=== PATIENT | female | born 2000 | race Caucasian/White ===

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

== ENCOUNTER 2018-11-05 16:59 | Outpatient (CLI) | payer OTHER, SELFPAY ==
[~2018-11-05] VITALS: Ht 167.6 cm; Wt 60.7 kg
[~2018-11-05 16:59] MED LIST changes: +IBUP-1114 PO; +MAPA500T2 PO
[2018-11-05 17:35] VITALS: BP 136/75
== END 2018-11-05 18:50 | disposition home or self-care (01) ==
LOC: M LDO 16:59
PROVIDERS: ATTEND Advanced Practice Midwife
DX: O26.892 Other specified pregnancy related conditions, second trimester (principal); O09.32 Supervision of pregnancy with insufficient antenatal care, second trimester; Z3A.25 25 weeks gestation of pregnancy
CPT/HCPCS: 59025; G0378; G0463

== ENCOUNTER → 2018-12-15 | Outpatient (CLI) | payer MEDICAID ==
--- NOTE | 2018-12-15 16:35 | REP ---
Obstetric ultrasound for anatomy: There is a single intrauterine gestation in a vertex presentation. There is movement and cardiac activity. The heart rate is 136 beats per minute. The placenta is posterior. There is no previa or abruptio. The placenta is grade 1 maturity. The amniotic fluid volume subjectively is normal. The cervix measures through 0.8 cm length. Gestational age by today's ultrasound is 30 weeks 1 day/NIEVES 02/22/2019. Gestational age by LMP is 30 weeks 5 days/NIEVES 02/18/2019. The amniotic fluid index is 11.9. This is a point -2002 0.7). Umbilical artery mid cord Doppler assessment: S/D ratio 2.63 (2.30-3.30) Resistive Index 0.62 (0.59-0.75 Diastolic Velocity 16.0 (>10 cm/sec) The following anatomic structures are identified and are unremarkable: Intracranial lateral ventricles, choroid plexus, face, upper lip, facial profile, lungs, four-chamber heart, cardiac right and left ventricular outflow tracts, diaphragm, stomach, cord insertion, three-vessel cord, kidneys, bladder, spine and upper lower extremities. The cerebellum and cannot be optimally imaged because of advanced gestational age. Otherwise, there are no anomalies. Electronically Signed by Brenden Fofana MD 12/15/2018 04:26 P
== END ==
LOC: M RAD 14:15
PROVIDERS: ATTEND Advanced Practice Midwife
DX: Z36.89 Encounter for other specified antenatal screening (principal); Z3A.30 30 weeks gestation of pregnancy

== ENCOUNTER → 2019-01-23 | Outpatient (REF) | payer OTHER | LOC: M LAB REF 13:13 | PROVIDERS: ATTEND Advanced Practice Midwife | DX: O99.613 Diseases of the digestive system complicating pregnancy, third trimester (principal); Z3A.00 Weeks of gestation of pregnancy not specified ==

== ENCOUNTER → 2019-05-06 | Outpatient (REF) | payer OTHER ==
[2019-05-06 20:26] LABS: CHLAMYDIA DNA AMPLIFICATION NEGATIVE (NEGATIVE); GC DNA AMPLIFICATION NEGATIVE (NEGATIVE)
== END ==
LOC: M LAB REF 16:52
PROVIDERS: ATTEND Physician Assistant
DX: B37.3 Candidiasis of vulva and vagina (principal)

== ENCOUNTER → 2019-07-16 | Outpatient (REF) | payer OTHER | LOC: M LAB REF 14:14 | PROVIDERS: ATTEND Physician Assistant | DX: N91.2 Amenorrhea, unspecified (principal) ==

== ENCOUNTER → 2022-10-01 | Outpatient (CLI) | payer OTHER ==
[2022-10-01 15:01] LABS: HEMATOCRIT 35.3 % (36.0-47.0); HEMOGLOBIN 11.2 g/dl (12.0-15.5); MEAN CORPUSCULAR HEMOGLOBIN 27.1 pg (27.0-33.0); MEAN CORPUSCULAR HGB CONC 31.7 g/dl (32.0-36.5); MEAN CORPUSCULAR VOLUME 85.5 fl (80.0-96.0); PLATELET COUNT, AUTOMATED 229 10^3/uL (150-450); RED BLOOD COUNT 4.13 10^6/uL (4.00-5.40); WHITE BLOOD COUNT 8.7 10^3/uL (4.0-10.0)
[2022-10-01 16:37] LABS: GC DNA AMPLIFICATION NEGATIVE (NEGATIVE)
[2022-10-01 17:19] LABS: HIV 1&2 SCREEN CENTAUR NEGATIVE (NEGATIVE)
[2022-10-01 17:27] LABS: HEPATITIS C VIRUS ABY INDEX 0.1 INDEX (<0.8)
== END ==
LOC: M PLALAB 10:52
PROVIDERS: ATTEND Advanced Practice Midwife
DX: Z34.93 Encounter for supervision of normal pregnancy, unspecified, third trimester (principal)

== ENCOUNTER → 2022-10-01 | Outpatient (CLI) | payer OTHER | LOC: M PLALAB 10:50 | PROVIDERS: ATTEND Specialist | DX: Z34.83 Encounter for supervision of other normal pregnancy, third trimester (principal) ==

== ENCOUNTER 2022-10-07 12:55 | Outpatient (CLI) | payer OTHER ==
[~2022-10-07] VITALS: Ht 165.1 cm; Wt 71.3 kg
[~2022-10-07 12:55] MED LIST changes: +PRENMIS3 PO
[2022-10-07] MEDS ORDERED: BETAMETHASONE SOLUSPAN 6MG/ML 5ML VIAL IM ONE (13:05)
[2022-10-07 13:14] VITALS: BP 132/71
[2022-10-07] MEDS ORDERED: HOME MED LIST COMPLETE! XX SCH (13:15)
== END 2022-10-07 13:30 | disposition home or self-care (01) ==
LOC: M LDO 12:55
PROVIDERS: ATTEND Obstetrics & Gynecology
DX: O47.03 False labor before 37 completed weeks of gestation, third trimester (principal); Z3A.36 36 weeks gestation of pregnancy; Z20.822 Contact with and (suspected) exposure to COVID-19
CPT/HCPCS: 96372; J0702

== ENCOUNTER 2022-10-18 12:31 | Inpatient (IN) | payer OTHER ==
[2022-10-18] VITALS (16 sets, daily range): BP systolic 116–143; BP diastolic 59–112
[~2022-10-18] VITALS: Ht 165.1 cm; Wt 71.4 kg
[2022-10-18] MEDS: PRENATAL VITAMINS CHEWABLE TABLET PO SCH (09:00)
[2022-10-18] MEDS ORDERED: LACTATED RINGER'S 1000 ML IV STA (13:05)
[2022-10-18] MEDS ORDERED: TRANEXAMIC ACID INJection 1,000 MG in NS 100 ML IV PRN (13:05)
[2022-10-18] MEDS ORDERED: OXYTOCIN DRIP 30 UNITS in IV 1 EA IV PRN (13:05)
[2022-10-18] MEDS ORDERED: LIDOCAINE 1% MDV 20ML VIAL INFIL PRN (13:05)
[2022-10-18] MEDS ORDERED: CARBOPROST TROMETHAMINE 250 MCG/ML AMP IM PRN (13:05)
[2022-10-18] MEDS ORDERED: HOME MED LIST COMPLETE! XX SCH (13:15)
[2022-10-18 13:26] LABS: HEMATOCRIT 35.9 % (36.0-47.0); HEMOGLOBIN 11.6 g/dl (12.0-15.5); MEAN CORPUSCULAR HEMOGLOBIN 26.7 pg (27.0-33.0); MEAN CORPUSCULAR HGB CONC 32.3 g/dl (32.0-36.5); MEAN CORPUSCULAR VOLUME 82.7 fl (80.0-96.0); PLATELET COUNT, AUTOMATED 234 10^3/uL (150-450); RED BLOOD COUNT 4.34 10^6/uL (4.00-5.40); WHITE BLOOD COUNT 16.9 10^3/uL (4.0-10.0)
[2022-10-18] MEDS ORDERED: ePHEDrine SULFATE 25 MG/5 ML(5MG/ML) SYRINGE IVP PRN (13:40)
[2022-10-18] MEDS ORDERED: LR 500 ML IV PRN (13:40)
[2022-10-18] MEDS ORDERED: ONDANSETRON 4MG 2ML VIAL IV PRN (13:40)
[2022-10-18] MEDS ORDERED: diphenhydrAMINE 50MG/ML VIAL IV PRN (13:40)
[2022-10-18] MEDS ORDERED: NALOXONE INJ 0.4MG/1ML VIAL IV PRN (13:40)
[2022-10-18] MEDS ORDERED: EPIDURAL/PCA KEYS XX PRN (13:40)
[2022-10-18] MEDS: LR 1,000 ML IV SCH ×4 (13:43→22:55)
[2022-10-18] MEDS ORDERED: FENTANYL 2MCG/ML ROPIVACAINE 0.2% IN 0.9% NACL 100ML IVBAG As Ordered ONE (14:04)
[2022-10-18] MEDS: FENTANYL/ROPIVACAINE/NACL BAG 100 ML EPIDURAL SCH ×2 (14:53→23:40)
[2022-10-18] MEDS ORDERED: RHOGAM 300MCG (1500IU) INJ IM SCH (14:55)
[2022-10-18] MEDS ORDERED: OXYTOCIN DRIP 30 UNITS in IV 1 EA IV SCH (14:55)
[2022-10-18] MEDS ORDERED: IBUPROFEN 600MG TAB PO PRN (14:55)
[2022-10-18] MEDS ORDERED: ANUSOL HC CREAM 30GM TOP PRN (14:55)
[2022-10-18] MEDS ORDERED: DIBUCAINE 1% OINTMENT 30GM TOP PRN (14:55)
[2022-10-18] MEDS ORDERED: DOCUSATE SODIUM 100MG CAPSULE PO PRN (14:55)
[2022-10-18] MEDS ORDERED: ACETAMINOPHEN 500 MG TAB PO PRN (14:55)
[2022-10-18] MEDS ORDERED: ACETAMINOPHEN TAB 650MG DOSE (2X325MG) PO PRN (14:55)
[2022-10-19] MEDS: IBUPROFEN 800 MG TAB PO PRN ×2 (00:21→20:01)
[2022-10-19 06:00] VITALS: BP 108/50
[2022-10-19] MEDS: PRENATAL VITAMINS CHEWABLE TABLET PO SCH (08:22)
[2022-10-19 17:35] VITALS: BP 119/68
[2022-10-20 06:00] VITALS: BP 125/68
[2022-10-20] MEDS ORDERED: MEASLES,MUMPS,RUBELLA VACCINE INJ (MMR-II) SC.IMMUN ONE (09:00)
[2022-10-20] MEDS: PRENATAL VITAMINS CHEWABLE TABLET PO SCH (09:24)
== END 2022-10-20 13:35 | disposition home or self-care (01) | DRG 560 ==
LOC: M LDI 12:31 → M OBS 16:22
PROVIDERS: ADMIT Obstetrics & Gynecology; ATTEND Obstetrics & Gynecology
PROC: 10E0XZZ Delivery of Products of Conception, External Approach (ICD-10-PCS; principal; 2022-10-18)
DX: O80 Encounter for full-term uncomplicated delivery (principal); Z37.0 Single live birth; Z3A.38 38 weeks gestation of pregnancy

== ENCOUNTER → 2022-12-11 | Outpatient (REF) | payer OTHER ==
[2022-12-11 17:50] LABS: GC DNA AMPLIFICATION NEGATIVE (NEGATIVE)
== END ==
LOC: M LAB REF 16:03
PROVIDERS: ATTEND Physician Assistant
DX: N76.0 Acute vaginitis (principal)

== ENCOUNTER → 2023-06-13 | Outpatient (REF) | payer OTHER ==
[2023-06-13 23:42] LABS: GC DNA AMPLIFICATION NEGATIVE (NEGATIVE)
== END ==
LOC: M LAB REF 21:29
PROVIDERS: ATTEND Physician Assistant Medical
DX: Z20.2 Contact with and (suspected) exposure to infections with a predominantly sexual mode of transmission (principal)

== ENCOUNTER → 2025-02-07 | Outpatient (REF) | payer OTHER ==
[2025-02-07 18:15] LABS: APPEARANCE, URINE CLEAR (CLEAR); BACTERIA, URINE AUTO NEGATIVE (NEGATIVE); BILIRUBIN, URINE AUTO NEGATIVE (NEGATIVE); BLOOD, URINE BLOOD NEGATIVE (NEGATIVE); COLOR, URINE YELLOW (YELLOW); GLUCOSE, URINE (UA) AUTO NEGATIVE (NEGATIVE); KETONE, URINE AUTO NEGATIVE (NEGATIVE); LEUKOCYTE ESTERASE, URINE AUTO NEGATIVE (NEGATIVE); NITRITE, URINE AUTO NEGATIVE (NEGATIVE); PROTEIN, URINE AUTO NEGATIVE (NEGATIVE); RBC, URINE AUTO 0 /HPF (0-3); SPECIFIC GRAVITY URINE AUTO 1.016 (1.002-1.035); SQUAMOUS EPITHELIAL CELL UR AU 2 /HPF (0-6); UROBILINOGEN, URINE AUTO 0.2 mg/dL (0.0-2.0); WBC, URINE AUTO 1 /HPF (0-3)
[2025-02-07 19:36] LABS: Trichomonas vaginalis (AMP) NOT DETECTED (NEGATIVE)
[2025-02-07 20:28] LABS: GC DNA AMPLIFICATION NEGATIVE (NEGATIVE)
== END ==
LOC: M LAB REF 10:35
PROVIDERS: ATTEND Physician Assistant Medical
DX: N39.0 Urinary tract infection, site not specified (principal); Z20.2 Contact with and (suspected) exposure to infections with a predominantly sexual mode of transmission